=== PATIENT | female | born 1950 | race Caucasian/White ===

== ENCOUNTER 2017-03-15 11:43 | Emergency (ER) | payer MEDICARE, MEDICAID ==
[2017-03-15 12:00] VITALS: BP 145/89
--- NOTE | 2017-03-15 12:21 | UC ---
Skin Complaint HPI - HPI Summary HPI Summary: Patient presents to with CC of chemical burn/contact dermatitis to the diffusely through the right dorsum of the hand, slightly over the left dorsum of the hand and the left side of the cheek. She works with chemicals at work and currently cannot wear gloves there at [employer] because they are only supplying latex gloves to which she is allergic. She has had this issue before and has had steroids for relief. Unknown what type of chemical was dispersed over the hands. Hx of throat CA and stroke. Currently in remission. - History of Current Complaint Chief Complaint: UCSkin Time Seen by Provider: 03/15/17 11:58 Stated Complaint: SKIN COMPLAINT (CHEMICAL?) Hx Obtained From: Patient ?: No Onset/Duration: Gradual Onset Skin Exposure Onset/Duration: Days Ago Timing: Constant Onset Severity: Moderate Current Severity: Moderate Pain Intensity: 5 Pain Scale Used: 0-10 Numeric Location: Discrete - hands Character: Redness, Raised, Painful Aggravating: Wet Conditions Alleviating: Cold Compresses Associated Signs & Symptoms: Positive: Rash Related History: Possible Reaction to: Environmental Exposure - Allergy/Home Medications Allergies/Adverse Reactions: Allergies Allergy/AdvReac Type Severity Reaction Status Date / Time Morphine Allergy Mild nausea Verified 03/15/17 11:50 vomiting Codeine AdvReac Mild nausea Verified 03/15/17 11:50 vomiting Home Medications: Home Medications Aspirin [Eq Aspirin] 325 mg PO DAILY 03/15/17 [History Confirmed 03/15/17] Levetiracetam [Keppra 500] 500 mg PO BID 03/15/17 [History Confirmed 03/15/17] Levothyroxine TAB* [Synthroid TAB*] 50 mcg PO DAILY 03/15/17 [History Confirmed 03/15/17] Simvastatin TAB(NF) [Zocor(NF)] 10 mg PO DAILY 03/15/17 [History Confirmed 03/15] Review of Systems Constitutional: Negative Skin: Rash Eyes: Negative ENT: Negative Respiratory: Negative Genitourinary: Negative Motor: Negative Neurovascular: Negative Neurological: Negative Psychological: Negative All Other Systems Reviewed And Are Negative: Yes PMH/Surg Hx/FS Hx/Imm Hx Previously Healthy: Yes - Surgical History Surgical History: Yes Surgery Procedure, Year, and Place: esophogeal dilitation - Family History Known Family History: Positive: Unknown - Social History Occupation: Employed Full-time Lives: With Family Alcohol Use: None Substance Use Type: None Smoking Status (MU): Former Smoker Type: Cigarettes Have You Smoked in the Last Year: No When Did the Patient Quit Smoking/Using Tobacco: 2005 Physical Exam Triage Information Reviewed: Yes Appearance: Well-Appearing, No Pain Distress, Well-Nourished Vital Signs: Initial Vital Signs Temp 97.8 F 03/15/17 11:53 Pulse 65 03/15/17 11:53 Resp 16 03/15/17 11:53 BP 145/89 03/15/17 11:53 Pulse Ox 100 03/15/17 11:53 Eye Exam: Normal Eyes: Positive: Conjunctiva Clear Neck exam: Normal Neck: Positive: Supple, No Lymphadenopathy Respiratory Exam: Normal Respiratory: Positive: Chest non-tender, Lungs clear Cardiovascular Exam: Normal Cardiovascular: Positive: RRR Musculoskeletal Exam: Normal Musculoskeletal: Positive: Strength Intact Psychological: Positive: Normal Response To Family, Age Appropriate Behavior Skin: Positive: Other - diffuse ezcematic dry fissures/patches with area of bleeding over the dorsum of the right hand, slightly over the left hand and left side of cheek Course/Dx - Course Course Of Treatment: diffuse ezcematic dry patches with fissues with area of bleeding over the dorsum of the right hand, slightly over the left hand and left side of cheek. likely d/t chemical reaction from her work. Contact dermatitis. Prescription for 5 days prednisone, triamcinalone cream 5% and encouraged to wear non-latex gloves at work. note given for work. - Differential Diagnoses - Skin Complaint Differential Diagnoses: Contact Dermatitis, Drug Rash, Local Allergic Reaction, Poison [place], Poison [place] - Diagnoses Provider Diagnoses: Contact Dermatitis Discharge - Discharge Plan Condition: Stable Disposition: HOME Prescriptions: Triamcinolone 0.5% CREAM(NF) [Triamcinolone 0.5% CREAM*] 1 applic TOPICAL QID # 1 tube predniSONE TAB* [Deltasone TAB*] 50 mg PO DAILY #5 tab MDD 1 Patient Education Materials: Chemical Skin Burn (ED), Contact Dermatitis (ED) Forms: *Gen. Provider Communication Referrals: Jonny Boyce DO [Primary Care Provider] - Additional Instructions: APPLY TO AREA 4 TIMES DAILY USE GLOVES AT WORK AFTER APPLYING THE CREAM TAKE PREDNISONE 50MG ONCE IN THE MORNING FOR 5 DAYS IF SYMPTOMS BECOME WORSE, COME BACK TO IMMEDIATELY.
== END 2017-03-15 12:26 | disposition home or self-care (01) ==
LOC: UCCORT 11:43
DX: L25.9 Unspecified contact dermatitis, unspecified cause (principal); Z86.73 Personal history of transient ischemic attack (TIA), and cerebral infarction without residual deficits; Z88.5 Allergy status to narcotic agent; Z87.891 Personal history of nicotine dependence
CPT/HCPCS: 99202; G0463

== ENCOUNTER 2017-06-15 12:21 | Emergency (ER) | payer MEDICARE, MEDICAID ==
[2017-06-15 13:07] VITALS: BP 144/71
--- NOTE | 2017-06-15 13:38 | UC ---
Skin Complaint HPI - HPI Summary HPI Summary: Patient presents to the with CC of bilateral hand pruritis, swelling and eczematic fissures - worse in the right hand. 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 She wears gloves while at work. Pain and pruritis and swelling are worse at night and better with steroids. She was seen 3 months ago for same symptoms and treated by myself with triamcinalone and prednisone. She states this cleared up the issue for all 3 months, but recently her symptoms began to return. She is encouraged to change gloves frequently at work and wash hands frequently while drying well. This does not appear to by dyshidrotic eczema and there are no pustules or papules. - History of Current Complaint Chief Complaint: UCSkin Time Seen by Provider: 06/15/17 13:24 Stated Complaint: RASH Hx Obtained From: Patient Hx Last Menstrual Period: n/a ?: No Onset/Duration: Sudden Onset Timing: Constant Onset Severity: Moderate Current Severity: Moderate Pain Intensity: 5 Pain Scale Used: 0-10 Numeric Location: Hand (Right), Hand (Left) Character: Swelling, Pruritus Alleviating Factor(s): Antihistamines Associated Signs & Symptoms: Positive: Red Streaks, Joint Swelling Related History: Possible Reaction to: Environmental Exposure - Allergy/Home Medications Allergies/Adverse Reactions: Allergies Allergy/AdvReac Type Severity Reaction Status Date / Time Morphine Allergy Mild nausea Verified 06/15/17 13:07 vomiting Codeine AdvReac Mild nausea Verified 06/15/17 13:07 vomiting Review of Systems Constitutional: Negative Skin: Rash Eyes: Negative Respiratory: Negative Cardiovascular: Negative Gastrointestinal: Negative Genitourinary: Negative Motor: Negative Musculoskeletal: Negative Neurological: Negative Psychological: Negative Is Patient Immunocompromised?: Yes All Other Systems Reviewed And Are Negative: Yes PMH/Surg Hx/FS Hx/Imm Hx Previously Healthy: Yes - Surgical History Surgical History: Yes Surgery Procedure, Year, and Place: esophogeal dilitation - Family History Known Family History: Positive: Unknown - Social History Occupation: Employed Full-time Lives: With Family Alcohol Use: None Substance Use Type: None Smoking Status (MU): Former Smoker Type: Cigarettes Have You Smoked in the Last Year: No When Did the Patient Quit Smoking/Using Tobacco: 2005 - Immunization History Most Recent Influenza Vaccination: no Physical Exam Triage Information Reviewed: Yes Appearance: Well-Appearing, Well-Nourished Vital Signs: Initial Vital Signs Temp 98.9 F 06/15/17 13:03 Pulse 68 06/15/17 13:03 Resp 15 06/15/17 13:03 BP 144/71 06/15/17 13:03 Pulse Ox 99 06/15/17 13:03 Vital Signs Reviewed: Yes Eye Exam: Normal Eyes: Positive: Conjunctiva Clear Neck exam: Normal Neck: Positive: Supple, No Lymphadenopathy Respiratory Exam: Normal Respiratory: Positive: Chest non-tender Cardiovascular Exam: Normal Cardiovascular: Positive: RRR Musculoskeletal: Positive: Strength Intact Neurological Exam: Normal Neurological: Positive: Alert Psychological Exam: Normal Psychological: Positive: Normal Response To Family Skin: Positive: rashes Course/Dx - Course Course Of Treatment: She is encouraged to change gloves frequently at work and wash hands frequently while drying well. This does not appear to by dyshidrotic eczema and there are no pustules or papules. She is evaluated for contact dermatitis and shoulder pain. She was evaluated for something similar 3 months ago and plan at that time improved her symptoms. She is given the same medications today with the addition of hydroxyzine. She is given return precautions. - Differential Diagnoses - Skin Complaint Differential Diagnoses: Contact Dermatitis, Drug Rash, Other - Diagnoses Provider Diagnoses: Contact Dermatitis Discharge - Discharge Plan Condition: Stable Disposition: HOME Prescriptions: Triamcinolone 0.5% CREAM(NF) [Triamcinolone 0.5% CREAM*] 1 applic TOPICAL QID # 2 tube hydrOXYzine HCL TAB* [Atarax 25 MG TAB*] 25 mg PO TID PRN #20 tab PRN Reason: Itching predniSONE TAB* [Deltasone TAB*] 50 mg PO DAILY #5 tab MDD 1 Patient Education Materials: Contact Dermatitis (ED) Referrals: Jonny Boyce DO [Primary Care Provider] - Additional Instructions: Continue to wear gloves at work Apply the triamcinalone .5% cream (4 times daily) until symptoms resolve Prednisone once daily for 5 days - in the morning Hydroxyzine tabs up to three times daily only as needed for itching. Do not drive on this medication until you know how it affects you.
== END 2017-06-15 13:52 | disposition home or self-care (01) ==
LOC: UCCORT 12:21
DX: L25.9 Unspecified contact dermatitis, unspecified cause (principal); Z87.891 Personal history of nicotine dependence; Z88.5 Allergy status to narcotic agent
CPT/HCPCS: 99212; G0463

== ENCOUNTER 2017-08-21 07:15 | Emergency (ER) | payer MEDICARE, MEDICAID ==
[2017-08-21 07:25] VITALS: BP 181/81
--- NOTE | 2017-08-21 07:50 | UC ---
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 Denies any pain." she does admit to nasal congestion and PND. no ST. no pain. - History of Current Complaint Chief Complaint: UCEar Stated Complaint: EAR PLUGGED Time Seen by Provider: 08/21/17 07:21 Hx Last Menstrual Period: n/a - Allergies/Home Medications Allergies/Adverse Reactions: Allergies Allergy/AdvReac Type Severity Reaction Status Date / Time Morphine Allergy Mild nausea Verified 08/21/17 07:20 vomiting Codeine AdvReac Mild nausea Verified 08/21/17 07:20 vomiting PMH/Surg Hx/FS Hx/Imm Hx Previously Healthy: Yes Endocrine History: Thyroid Disease Neurological History: Seizures - Surgical History Surgical History: Yes Surgery Procedure, Year, and Place: esophogeal dilitation - Family History Known Family History: Positive: Hypertension - Social History Alcohol Use: None Substance Use Type: None Smoking Status (MU): Former Smoker Type: Cigarettes Have You Smoked in the Last Year: No When Did the Patient Quit Smoking/Using Tobacco: 2009 - Immunization History Most Recent Influenza Vaccination: no Review of Systems Constitutional: Negative Skin: Negative Eyes: Negative ENT: Nasal Discharge Respiratory: Negative Cardiovascular: Negative Gastrointestinal: Negative Genitourinary: Negative Motor: Negative Neurovascular: Negative Musculoskeletal: Negative Neurological: Negative Psychological: Negative Is Patient Immunocompromised?: No All Other Systems Reviewed And Are Negative: Yes Physical Exam Triage Information Reviewed: Yes Appearance: Well-Appearing, No Pain Distress, Well-Nourished - very pleasant Vital Signs: Initial Vital Signs Temp 98.1 F 08/21/17 07:22 Pulse 75 08/21/17 07:22 Resp 18 08/21/17 07:22 BP 181/81 08/21/17 07:22 Pulse Ox 99 08/21/17 07:22 Vital Signs Reviewed: Yes Eye Exam: Normal ENT: Positive: Pharyngeal erythema - +PND, Nasal congestion, Nasal drainage. Negative: TMs normal - Rt serous effusion, mild. Neck exam: Normal Neck: Positive: Supple, Nontender, No Lymphadenopathy Respiratory Exam: Normal Respiratory: Positive: Lungs clear, Normal breath sounds, No respiratory distress, No accessory muscle use Cardiovascular Exam: Normal Cardiovascular: Positive: RRR, No Murmur, Pulses Normal Musculoskeletal Exam: Normal Neurological Exam: Normal Psychological Exam: Normal Ear Complaint Course/Dx - Course Course Of Treatment: advised to f/u w/ pcp if sx do not resolve. - Differential Dx/Diagnosis Differential Diagnosis/HQI/PQRI: Cerumen Impaction, Foreign Body, Otitis Externa , Otitis Media Provider Diagnoses: Rt serous otitis, URI Discharge - Discharge Plan Condition: Stable Disposition: HOME Prescriptions: Fluticasone Propionate (Nasal) [Eql Fluticasone Propionat] 50 mcg NA DAILY 10 Days #1 spr Patient Education Materials: Serous Otitis Media (ED) Referrals: Jonny Boyce DO [Primary Care Provider] - Additional Instructions: Adding a humidifier to your room at night will be helpful as well as warm showers.
== END 2017-08-21 08:06 | disposition home or self-care (01) ==
LOC: UCCORT 07:15
DX: H65.91 Unspecified nonsuppurative otitis media, right ear (principal); J06.9 Acute upper respiratory infection, unspecified; E07.9 Disorder of thyroid, unspecified; R56.9 Unspecified convulsions; Z88.5 Allergy status to narcotic agent; Z87.891 Personal history of nicotine dependence
CPT/HCPCS: 99212; G0463

== ENCOUNTER 2017-09-21 07:09 | Emergency (ER) | payer MEDICAID, MEDICARE ==
[2017-09-21 07:23] VITALS: BP 149/83
--- NOTE | 2017-09-21 07:37 | UC ---
Throat Pain/Nasal Xavier HPI - HPI Summary HPI Summary: Congestion, sinus pressure and right ear pressure. The congestion has been about 2 days. There has been ear pressure for a few weeks. no fever. She has had a cough for a few days as well. She is on flonase for sinus disease as well. In the past prednisone has helped with pressure and congestion. - History of Current Complaint Chief Complaint: UCRespiratory Stated Complaint: SINUS COMPLAINT Time Seen by Provider: 09/21/17 07:25 Hx Obtained From: Patient Hx Last Menstrual Period: n/a ?: No Onset/Duration: Gradual Onset, Lasting Days Severity: Moderate Cough: Nonproductive Associated Signs & Symptoms: Positive: Sinus Discomfort, Nasal Discharge. Negative: Wheezing, Fever, Vomiting, Rash - Allergies/Home Medications Allergies/Adverse Reactions: Allergies Allergy/AdvReac Type Severity Reaction Status Date / Time Morphine Allergy Mild nausea Verified 09/21/17 07:23 vomiting Codeine AdvReac Mild nausea Verified 09/21/17 07:23 vomiting PMH/Surg Hx/FS Hx/Imm Hx Previously Healthy: No - Surgical History Surgical History: Yes Surgery Procedure, Year, and Place: esophogeal dilitation - Family History Known Family History: Positive: Unknown, Hypertension - Social History Alcohol Use: None Substance Use Type: None Smoking Status (MU): Former Smoker Type: Cigarettes Have You Smoked in the Last Year: No When Did the Patient Quit Smoking/Using Tobacco: 2009 - Immunization History Most Recent Influenza Vaccination: no Review of Systems ENT: Sinus Congestion, Sinus Pain/Tenderness Respiratory: Cough All Other Systems Reviewed And Are Negative: Yes Physical Exam Triage Information Reviewed: Yes Appearance: Well-Appearing, No Pain Distress, Well-Nourished Vital Signs: Initial Vital Signs Temp 98.7 F 09/21/17 07:17 Pulse 85 09/21/17 07:17 Resp 20 09/21/17 07:17 BP 149/83 09/21/17 07:17 Pulse Ox 99 09/21/17 07:17 Vital Signs Reviewed: Yes ENT: Positive: Pharynx normal, Nasal congestion, TMs normal, Uvula midline, Other - right tm slightly retracted.. Negative: Nasal drainage, TM bulging, TM dull, TM red, Tonsillar swelling, Tonsillar exudate, Trismus Neck exam: Normal Neck: Positive: Nontender, No Lymphadenopathy Respiratory: Positive: Lungs clear, Normal breath sounds, No respiratory distress, No accessory muscle use, Respiratory distress. Negative: Decreased breath sounds, Accessory muscle use, Crackles, Rhonchi, Stridor, Wheezing Cardiovascular: Positive: No Murmur, Pulses Normal, Brisk Capillary Refill, Tachycardia Abdomen Description: Positive: Nontender, No Organomegaly, Soft. Negative: Distended, Guarding Musculoskeletal: Positive: Strength Intact, ROM Intact, No Edema Neurological: Positive: Alert, Muscle Tone Normal. Negative: Fatigued Psychological: Positive: Age Appropriate Behavior Skin: Negative: rashes Throat Pain/Nasal Course/Dx - Course Assessment/Plan: URI without signs of bacterial infection. Nasal irrigation and OTC decongestants recommended. SHe can try medrol dose pack as it has helped in the past. She will wait until day 9 of sinus pressure to start amoxicillin. - Differential Dx/Diagnosis Provider Diagnoses: uri Discharge - Discharge Plan Condition: Good Disposition: HOME Prescriptions: Amoxicillin PO (*) [Amoxicillin 500 MG CAP*] 500 mg PO TID #30 cap Methylprednisolone [Medrol Dosepak 4 MG*] 4 mg PO .SEE VIVIANA INSTRUCTION #21 tab Patient Education Materials: Sinusitis (ED) Referrals: Jonny Boyce DO [Primary Care Provider] - If Needed
== END 2017-09-21 07:35 | disposition home or self-care (01) ==
LOC: UCCORT 07:09
DX: J06.9 Acute upper respiratory infection, unspecified (principal); Z88.5 Allergy status to narcotic agent; Z87.891 Personal history of nicotine dependence
CPT/HCPCS: 99212; G0463

== ENCOUNTER 2018-02-06 16:07 | Emergency (ER) | payer MEDICAID, MEDICARE ==
[2018-02-06 16:29] VITALS: BP 113/64
--- NOTE | 2018-02-06 16:44 | UC ---
Complaint Female HPI - HPI Summary HPI Summary: Urinary frequency and urgency began 2 days ago---felt like she had chills 2 days ago as well - History Of Current Complaint Hx Obtained From: Patient Hx Last Menstrual Period: n/a ?: No Onset/Duration: Sudden Onset, Lasting Days - 2, Still Present Timing: Constant Pain Intensity: 7 Pain Scale Used: 0-10 Numeric Character: Burning Aggravating Factor(s): Urination Alleviating Factor(s): Nothing Associated Signs And Symptoms: Positive: Negative <Jenae Bravo - Last Filed: 02/06/18 17:12> <Roya Hayes - Last Filed: 02/06/18 17:43> - History Of Current Complaint Chief Complaint: UCGU Stated Complaint: URINARY Time Seen by Provider: 02/06/18 16:37 - Allergies/Home Medications Allergies/Adverse Reactions: Allergies Allergy/AdvReac Type Severity Reaction Status Date / Time codeine Allergy Unknown Nausea And Verified 02/06/18 16:21 Vomiting morphine Allergy Unknown Nausea And Verified 02/06/18 16:21 Vomiting PMH/Surg Hx/FS Hx/Imm Hx Previously Healthy: No Endocrine History: Hypothyroidism, Dyslipidemia Neurological History: Seizures Cancer History: Other Other Cancer History: throat cancer - Surgical History Surgical History: Yes Surgery Procedure, Year, and Place: esophogeal dilitation - Family History Known Family History: Positive: Unknown, Hypertension - Social History Occupation: Employed Part-time Lives: With Family Alcohol Use: None Substance Use Type: None Smoking Status (MU): Former Smoker Type: Cigarettes Have You Smoked in the Last Year: No When Did the Patient Quit Smoking/Using Tobacco: 2009 - Immunization History Most Recent Influenza Vaccination: no <Jenae Bravo - Last Filed: 02/06/18 17:12> Review of Systems Constitutional: Chills Skin: Negative Eyes: Negative ENT: Nasal Discharge, Sinus Congestion Respiratory: Negative Cardiovascular: Negative Gastrointestinal: Negative Genitourinary: Dysuria, Frequency, Urgency Motor: Negative Neurovascular: Negative Musculoskeletal: Negative Neurological: Negative Psychological: Negative Is Patient Immunocompromised?: No All Other Systems Reviewed And Are Negative: Yes <Jenae Bravo - Last Filed: 02/06/18 17:12> Physical Exam Triage Information Reviewed: Yes Appearance: No Pain Distress, Ill-Appearing - chronic unwell, Thin Vital Signs: Initial Vital Signs Temp 100.3 F 02/06/18 16:24 Pulse 91 02/06/18 16:24 Resp 16 02/06/18 16:24 BP 113/64 02/06/18 16:24 Pulse Ox 97 02/06/18 16:24 Vital Signs Reviewed: Yes Eye Exam: Normal Eyes: Positive: Conjunctiva Clear ENT Exam: Normal ENT: Positive: Normal ENT inspection, Hearing grossly normal, Pharynx normal, Nasal congestion, Nasal drainage, TMs normal, Uvula midline. Negative: Trismus , Muffled voice, Hoarse voice, Sinus tenderness Neck exam: Normal Neck: Positive: Supple, Nontender Respiratory Exam: Normal Respiratory: Positive: Chest non-tender, Lungs clear, Normal breath sounds, No respiratory distress, No accessory muscle use Cardiovascular Exam: Normal Cardiovascular: Positive: RRR, No Murmur, Pulses Normal, Brisk Capillary Refill Abdominal Exam: Normal Abdomen Description: Positive: Nontender, No Organomegaly, Soft. Negative: CVA Tenderness (R), CVA Tenderness (L), Distended Bowel Sounds: Positive: Present Musculoskeletal Exam: Normal Musculoskeletal: Positive: Strength Intact, ROM Intact, No Edema Neurological Exam: Normal Neurological: Positive: Alert, Muscle Tone Normal Psychological Exam: Normal Skin Exam: Normal <Jenae Bravo - Last Filed: 02/06/18 17:12> Vital Signs: Initial Vital Signs Temp 100.3 F 02/06/18 16:24 Pulse 91 02/06/18 16:24 Resp 16 02/06/18 16:24 BP 113/64 02/06/18 16:24 Pulse Ox 97 02/06/18 16:24 <Roya Hayes - Last Filed: 02/06/18 17:43> Diagnostics - Laboratory Diagnostic Studies Completed/Ordered: + nitrates, leukoestrace, blood and protien <Jenae Bravo - Last Filed: 02/06/18 17:12> Complaint Female Dx - Course Course Of Treatment: rocephin times one now, bactrim, increase fluids, tylenol, ibuprofen follow in [address] Boyce, culture urine - Differential Dx/Diagnosis Provider Diagnoses: UTI <Jenae Bravo - Last Filed: 02/06/18 17:12> Discharge - Sign-Out/Discharge Documenting (check all that apply): Discharge/Admit/Transfer - Billing Disposition and Condition Condition: STABLE Disposition: HOME <Jenae Bravo - Last Filed: 02/06/18 17:12> - Billing Disposition and Condition Condition: STABLE Disposition: HOME <Roya Hayes - Last Filed: 02/06/18 17:43> - Discharge Plan Condition: Stable Disposition: HOME Prescriptions: Sulfamethox/Trimethoprim DS* [Bactrim DS 800/160 TAB*] 1 tab PO BID #14 tab Patient Education Materials: Urinary Tract Infection in Women (ED), Urinary Tract Infection in Older Adults (ED) Referrals: Jonny Boyce DO [Primary Care Provider] - 1 Week Attestation Statement User Type: Provider - I was available for consult. This patient was seen by the DOMINIC. The patient was not presented to, seen by, or examined by me. -Edgarj <Roya Hayes - Last Filed: 02/06/18 17:43>
[2018-02-06] MEDS ORDERED: cefTRIAXone VIAL(*) 1,000 MG VIAL IM ONE (17:01)
[2018-02-06] MEDS ORDERED: Lidocaine 1% MPF* 2 ML VIAL INJ ONE (17:03)
[2018-02-06] MEDS ORDERED: Lidocaine 1%* 5 ML VIAL ONE (17:06)
== END 2018-02-06 17:26 | disposition home or self-care (01) ==
LOC: UCCORT 16:07
DX: N39.0 Urinary tract infection, site not specified (principal); B96.20 Unspecified Escherichia coli [E. coli] as the cause of diseases classified elsewhere; Z88.5 Allergy status to narcotic agent; Z87.891 Personal history of nicotine dependence
CPT/HCPCS: 81003; 87077; 87086; 87186; 96372; J0696

== ENCOUNTER 2019-11-25 07:08 | Emergency (ER) | payer MEDICARE ==
--- OUTSIDE RECORDS SUMMARY | 2019-11-25 07:15 | XMS REPORT | Continuity of Care Document ---
:1950 External Reference #:[id number] Author Name Jonny Boyce DO Address [address] [place] [id number] Care Team Providers Name Role Phone Geoff Edmondson MD - Cardiovascular Care Team Information Hot Dip Plating Supervisor [phone] Disease True Thompson MD - Vascular Care Team Information Hot Dip Plating Supervisor 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/2012 History of cerebrovascular accident without Jonny Boyce DO Onset: 2011 residual deficits Carotid artery occlusion Jonny Boyce DO Onset: 01/19/2012 Hypothyroidism Jonny Boyce DO Onset: 01/19/2012 Benign essential hypertension Onset: 02/03/2015 Social History Type Date Description Comments Sex Unknown ETOH Use Denies alcohol use Recreational Drug Use Denies Drug Use Tobacco Use Start: Unknown End: Unknown Patient is a former smoker Smoking Status Reviewed: 12/07/18 Patient is a former smoker Allergies, Adverse Reactions, Alerts Active Allergies Reaction Severity Comments Date Codeine 01/19/2012 Morphine 01/19/2012 Medications Active Medications SIG Qnty Indications Ordering Date Provider Betamethasone apply 1 15gm L23.5 Jonny Boyce, 02/15/2018 Dipropionate application DO 0.05% topically to Cream affected area 1 times per day for skin condition with itching, arms Flonase 1 [place] Each 16units Jonny Boyce, 09/18/2014 50mcg/Act Nostril Twice A DO Suspension Day Levothyroxine Sodium take 1 tablet by 90tabs Jonny Boyce, 05/14/2014 mouth once daily DO 50mcg Tablets Aspirin Ec 1 by mouth every 30tabs Jonny Boyce, 325mg day DO Tablets DR Simvastatin take 1 tablet by 90tabs Jonny Boyce, 40mg mouth every day DO Tablets Levetiracetam take 1 tablet by 180tabs Jonny Boyce, 500mg mouth twice daily DO Tablets History Medications Prednisone 2 by mouth 10tabs L23.5 Jonny Boyce, 11/05/2019 - 20mg Tablets with food once DO 11/10/2019 a day Azithromycin 2 by mouth x 6tabs Jonny Boyce, 10/31/2019 - 250mg 1, then 1 by DO 11/05/2019 Tablets mouth daily x 4 days Immunizations CPT Code Status Date Vaccine Reaction Lot # [id number] Given 07/14/2017 Influenza Vac, Quadrivalent, Split, 0.5mL Dosage, Im Use Q2037 Given 07/01/2016 Fluvirin Immunization [facility] Q2037 Given 08/07/2015 Fluvirin Immunization 53504 Given 06/26/2013 Afluria Or Fluvirin Flu Vac Intramuscular 03712 Given 06/12/2012 Afluria Or Fluvirin Flu Vac Intramuscular Vital Signs Date Vital Result Comment 10/31/2019 1:03pm Body Temperature 97.8 F Weight 100.00 lb Heart Rate 70 /min BP Systolic 96 mmHg BP Diastolic 62 mmHg Respiratory Rate 18 /min Height 63.5 inches 5'3.50" O2 % BldC Oximetry 97 % BMI (Body Mass Index) 17.4 kg/m2 06/14/2019 2:49pm Weight 104.00 lb Heart Rate 72 /min BP Systolic 98 mmHg BP Diastolic 54 mmHg Respiratory Rate 18 /min Height 63.5 inches 5'3.50" BMI (Body Mass Index) 18.1 kg/m2 Results Test Acquired Date Facility Test Result H/L Range Note CBC with Auto Diff-fcmg 06/19/2019 [facility] WBC 5.1 K/uL 4.1-11.0 RBC 4.88 M/uL 4.00-5.40 Hemoglobin 15.1 gm/dL 12.0-16.0 Hematocrit 45.7 % 36.0-47.0 MCV 93.7 fL 80.0-97.0 MCH 31.0 pg 27.0-32.0 MCHC 33.1 g/dL 32.0-36.0 RDW 14.1 % 11.5-14.5 PLT Count 155 K/ul 140-400 MPV 10.4 FL 7.1-10.7 Neutrophil 71.3 % 35.0-75.0 Lymphocyte 15.3 % Low 16.0-52.0 Monocyte 9.6 % 2.0-10.0 Eosinophil 2.9 % 0.0-5.0 Basophil 0.9 % 0.0-4.0 Abs Neutrophils 3.6 K/uL 2.1-8.0 Abs Lymphocytes 0.8 K/uL 0.8-5.5 Abs Monocytes 0.5 K/uL 0.1-1.0 Abs Eosinophils 0.1 K/uL 0.0-0.5 Abs Basophils 0.0 K/uL 0.0-0.3 Basic (BMP) 06/19/2019 [facility] Sodium 139 mmol/L 135-146 1 Potassium 4.0 mmol/L 3.5-5.2 Chloride# 95 mmol/L Low 97-110 2 Carbon Dioxide 36 mmol/L High 24-34 Glucose 92 mg/dL 70-105 BUN 5 mg/dL Low 6-26 Creatinine 0.7 mg/dL 0.5-1.4 Calcium 9.3 mg/dL 8.5-10.5 3 Female Egfr 91 >60 4 Male Egfr 99 >60 5 Anion Gap 8 mmol/L 5-15 6 Laboratory test finding 06/19/2019 [facility] TSH 4.82 uIU/mL 0.35-4.94 Lipid Treatment 06/19/2019 [facility] Cholesterol 163 mg/dL 50-199 Triglycerides 59 mg/dL 30-200 HDL 70 mg/dL 35-85 7 Chol/ HDL Ratio 2.3 ratio Low 3.7-5.6 VLDL 12 mg/dL 2-29 LDL (Calc) 81 mg/dL 20-99 8 Alt 9 U/L 3-42 Ast 18 U/L 8-42 Laboratory test 06/19/2019 [facility] Keppra 12 ug/mL (5-30) 9 finding Laboratory test 06/14/2019 [facility] C[facility]ard Cancelled - Not Applicable 10 finding Dupl <SEE NOTE> 1 Updated reference range on new analyzer 2 Updated reference range on new analyzer 3 Updated reference range 01-17-2019 4 Concerning GFR Guidelines for Americans: Normal function or mild renal disease, if clinically at risk: >/= 60 mL/min Moderately decreased: 30-59 Severely decreased: 15-29 Renal failure: <15 There is reduced accuracy above 60ml/min/1.73 m squared, but the numeric value may be clinically useful in the near 60 range 5 Concerning GFR Guidelines: Normal function or mild renal disease, if clinically at risk: >/= 60 mL/min Moderately decreased: 30-59 Severely decreased: 15-29 Renal failure: <15 There is reduced accuracy above 60ml/min/1.73 m squared, but the numeric value may be clinically useful in the near 60 range Glomerular Filtration Rate (GFR) is estimated based on the CKD-EPI equation, which assumes a steady state for creatinine as recommended by the National Kidney Disease Education Program in conjunction with the National Institutes of Health and the National Kidney Foundation. Clinical conditions in which it may be necessary to measure GFR by using clearance methods include extremes of age and body size, severe malnutrition or obesity, diseases of skeletal muscle, paraplegia or quadriplegia, vegetarian diet, rapidly changing kidney function, and calculation of the dose of potentially toxic drugs that are excreted by the kidneys. 6 Updated Reference Range 7 Per NCEP ATP III Guidelines: Results lower than 40 mg/dL are suggestive of increased risk for coronary artery disease. Results > or = to 60 mg/dL are considered a negative risk factor. 8 Per NCEP ATP III Guidelines: Normal Population <130 Patients with medical conditions: CHD/DM Optimal: <100 Borderline high: 130-159 High: 160-189 Very high: >189 9 Unless otherwise specified, testing performed by [facility] [address] [place] [id number] 10 Cancelled - Duplicate Order This order has been cancelled due to patient order duplication. Test Type: Composite algorithmic analysis of stool DNA-biomarkers with hemoglobin immunoassay. Quantitative values of individual biomarkers are not reportable and are not associated with individual biomarker result reference ranges. Precautions and Limitations: Cologuard is intended for colorectal cancer screening of adults of either sex, 50 years or older, who are at typical average -risk for colorectal cancer. A negative Cologuard test result does not guarantee the absence of colorectal cancer or advanced adenoma (pre-cancer). Patients with a negative Cologuard test result should be advised to continue participating in a colorec peng cancer screening program. Cologuard may produce a positive result, even though a colonoscopy may not find colorectal cancer or precancerous polyps. The performance of Cologuard has been established in a cross sectional study (i.e., single point in time). Performance has not been evaluated in adults who have been previously tested with Cologuard or in patients less than 50 years of age. Cologuard h as been approved for use by the U.S. FDA. Cologuard performance data in a 10, 000 patient pivotal study using colonoscopy as the reference method can be accessed at the following location: [email or web address]. Additional description of the Cologuard test process, warnings and precautions can be found at [email or web address]. Rx Only. Procedures Date Code Description Status 10/31/2019 79121 Measure Blood Oxygen Level Single Determination Completed Medical Devices Description No Information Available Encounters Type Date Location Provider Dx Diagnosis Office Visit 10/31/2019 1:00p [facility] Jonny Boyce DO R05 Cough R06.02 Shortness of breath Z68.1 Body mass index (BMI) 19.9 or less, adult Office Visit 06/14/2019 2:45p Jonny Bartholomew DO D69.6 Thrombocytopenia, unspecified 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 E78.2 Mixed hyperlipidemia R56.9 Unspecified convulsions I65.23 Occlusion and stenosis of bilateral carotid arteries Z86.73 Prsnl hx of TIA (TIA), and cereb infrc w/o resid deficits F41.0 Panic disorder [episodic paroxysmal anxiety] H91.8x1 Other specified hearing loss, RIGHT ear E03.9 Hypothyroidism, unspecified R13.10 Dysphagia, unspecified Z12.11 Encounter for screening for malignant neoplasm of colon Z68.1 Body mass index (BMI) 19.9 or less, adult Assessments Date Code Description Provider 10/31/2019 R05 Jonny Faustin DO 10/31/2019 R06.02 Shortness of breath Jonny Boyce DO 10/31/2019 Z68.1 Body mass index (BMI) 19.9 or less, adult Jonny Boyce DO 06/19/2019 E78.2 Mixed hyperlipidemia Boyce, Jonny, DO 06/19/2019 E78.2 Mixed hyperlipidemia Schedule, Laboratory 06/19/2019 R56.9 Unspecified convulsions Jonny Boyce DO 06/19/2019 R56.9 Unspecified convulsions Schedule, Laboratory 06/19/2019 E78.2 Mixed hyperlipidemia [facility] 06/14/2019 D69.6 Thrombocytopenia, unspecified Jonny Boyce, DO 06/14/2019 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 Jonny Boyce, DO 06/14/2019 E78.2 Mixed hyperlipidemia Jonny Boyce, DO 06/14/2019 R56.9 Unspecified convulsions Jonny Boyce, DO 06/14/2019 I65.23 Occlusion and stenosis of bilateral carotid AustenJonny arteries 06/14/2019 Z86.73 Personal history of transient ischemic attack Jonny Boyce DO (TIA), and cer 06/14/2019 F41.0 Panic disorder [episodic paroxysmal anxiety] AustenJonny DO 06/14/2019 H91.8x1 Other specified hearing loss, RIGHT ear BoyceJonnyDO 06/14/2019 E03.9 Hypothyroidism, unspecified Boyce Jonny, 06/14/2019 R13.10 Dysphagia, unspecified Jonny Boyce, 06/14/2019 Z12.11 Encounter for screening for malignant Jonny Boyce DO neoplasm of colon 06/14/2019 Z68.1 Body mass index (BMI) 19.9 or less, adult Jonny Boyce DO Plan of Treatment Future Appointment(s):11/19/2019 1:15 pm - Jonny Boyce DO at [facility]12/13/2019 10:15 am - Jonny Boyce DO at [facility]10/31/2019 - Jonny Boyce DOR05 CoughFollow up:Get x-ray done today or soon. See me if [id number] Shortness of kefhmxR04.1 Body mass index (BMI) 19.9 or less, adultAllNew Medication: Azithromycin 250 mg - 2 by mouth x 1, then 1 by mouth daily x 4 days Functional Status Description No Information Available Mental Status Description No Information Available Referrals Description No Information Available
--- OUTSIDE RECORDS SUMMARY | 2019-11-25 07:15 | XMS REPORT | Continuity of Care Document ---
:1950 External Reference #:[id number] Author Name Jonny Boyce DO Address [address] [place] [phone] Care Team Providers Name Role Phone Geoff Edmondson MD - Cardiovascular Care Team Information General Foreman Disease True Thompson MD - Vascular Care Team Information General Foreman [facility] - Neurology Care Team Information General Foreman [phone] Problems Active Problems Provider Date Malignant tumor [...] Medications SIG Qnty Indications Ordering Date Provider Prednisone 1 po bid 10tabs Jonny Boyce, 11/16/2019 20mg Tablets DO Albuterol Sulfate HFA 2 puffs every 4 8.500gm Jonny Boyce 11/16/2019 hours as needed DO 108(90Base) mcg/Act Aerosol Betamethasone apply 1 15gm L23.5 Jonny Boyce, 02/15/2018 Dipropionate application DO 0.05% topically to Cream affected area 1 times per day for skin condition with itching, arms Flonase 1 [place] Each 16units Jonny Boyce, 09/18/2014 50mcg/Act Nostril [...] Code Status Date Vaccine Reaction Lot # [id number] Given 07/14/2017 Influenza Vac, Quadrivalent, Split, 0.5mL Dosage, Im Use Q2037 Given 07/01/2016 Fluvirin Immunization [facility] Q2037 Given 08/07/2015 Fluvirin Immunization 51457 Given 06/26/2013 Afluria Or Fluvirin Flu Vac Intramuscular 83739 Given 06/12/2012 Afluria Or Fluvirin Flu Vac Intramuscular Vital Signs Date Vital Result Comment 11/19/2019 1:13pm Weight 96.00 lb R/Reg Heart Rate 79 /min BP Systolic 142 mmHg BP Diastolic 88 mmHg Respiratory Rate 18 /min Height 63.5 inches 5'3.50" O2 % BldC Oximetry 98 % BMI (Body Mass Index) 16.7 kg/m2 10/31/2019 1:03pm Body Temperature 97.8 F Weight 100.00 lb Heart Rate 70 /min BP Systolic 96 mmHg BP Diastolic 62 mmHg Respiratory Rate 18 /min Height 63.5 inches 5'3.50" O2 % BldC Oximetry 97 % BMI (Body Mass Index) 17.4 kg/m2 Results Test Acquired Date Facility Test Result H/L Range Note CBC with Auto Diff-fcmg 06/19/2019 [facility] WBC 5.1 K/uL 4.1-11.0 RBC 4.88 M/uL [...] 18 U/L 8-42 Laboratory test 06/19/2019 [facility] Mgra 12 ug/mL (5-30) 9 finding Laboratory test 06/14/2019 [facility] العلي[facility] Cancelled - Not Applicable 10 finding Dupl [...] Unless otherwise specified, testing performed by [facility] [place] [facility] [address] [place] [id number] 10 Cancelled - Duplicate Order This order [...] can be accessed at the following location: [email or web address]. Additional description of the Cologuard test process, warnings and precautions can be found at [email or web address]. Rx Only. Procedures Date Code Description Status 11/19/2019 93066 Measure Blood Oxygen Level Single Determination Completed 10/31/2019 33667 Measure Blood Oxygen Level Single Determination Completed Medical Devices Description No Information Available Encounters Type Date Location Provider Dx Diagnosis Office Visit 10/31/2019 1:00p [facility] Jonny Boyce DO R05 Cough R06.02 Shortness [...] less, adult Assessments Date Code Description Provider 11/19/2019 J44.1 Chronic obstructive pulmonary disease with Jonny Boyce DO (acute) exacerbation 11/19/2019 F17.210 Nicotine dependence, cigarettes, Jonny Boyce DO uncomplicated 11/19/2019 Z68.1 Body mass index (BMI) 19.9 or less, adult BoyceJonny, DO 10/31/2019 R05 Cough Jonny Boyce, DO 10/31/2019 R06.02 Shortness of breath Jonny Boyce, DO 10/31/2019 Z68.1 Body mass index (BMI) 19.9 or less, adult BoyceJonny delgado, DO 06/19/2019 E78.2 Mixed hyperlipidemia Jonny Boyce, DO 06/19/2019 E78.2 Mixed hyperlipidemia Schedule, Laboratory 06/19/2019 R56.9 Unspecified convulsions Jonny Boyce, DO 06/19/2019 R56.9 Unspecified convulsions Schedule, Laboratory 06/19/2019 E78.2 [facility] hyper[facility] 06/14/2019 D69.6 Thrombocytopenia, unspecified BoyceJonny, DO 06/14/2019 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 Jonny Boyce, DO 06/14/2019 E78.2 Mixed hyperlipidemia Jonny Boyce, DO 06/14/2019 R56.9 Unspecified convulsions Jonny Boyce, DO 06/14/2019 I65.23 Occlusion and stenosis of bilateral carotid Jonny Boyce , arteries 06/14/2019 Z86.73 Personal history of transient ischemic attack Boyce, JonnyDO (TIA), and cer 06/14/2019 F41.0 Panic disorder [episodic paroxysmal anxiety] Jonny Boyce , DO 06/14/2019 H91.8x1 Other specified hearing loss, RIGHT ear Jonny Boyce, DO 06/14/2019 E03.9 Hypothyroidism, unspecified BoyceJonny, DO 06/14/2019 R13.10 Dysphagia, unspecified BoyceJonny, DO 06/14/2019 Z12.11 Encounter for screening for malignant Jonny Boyce DO neoplasm of colon 06/14/2019 Z68.1 Body mass index (BMI) 19.9 or less, adult Boyce, Jonny, DO Plan of Treatment Future Appointment(s):12/13/2019 10:15 am - Jonny Boyce DO at [facility]11/19/2019 - Jonny Boyce DOJ44.1 Chronic obstructive pulmonary disease with (acute) exacerbationComments:We will do a referral to the placement manager and she likely needs a PFT. She will let us know if she is symptomatic. The patient was advised to continue taking prednisone 20 mg twice a day and use albuterol sulfate HFA inhaler.Follow up:The patient will recheck with us as scheduled.F17.210 Nicotine dependence, cigarettes, uncomplicatedComments:She states that she quit smoking cigarettes, and we will monitor that.Z68.1 Body mass index (BMI) 19.9 or less, adultAllReferral:Rajiv Casillas MD, Pulmonary DiagnosticsFollow up:The patient will recheck with us as scheduled. Functional Status Description No Information Available Mental Status Description No Information Available Referrals Refer to Dr Reason for Referral Status Appt Date Rajiv Casillas MD COPD- recent exacerbation- would like evaluation Created with PFT [address] [place] [address] [phone]
--- OUTSIDE RECORDS SUMMARY | 2019-11-25 07:16 | XMS REPORT | Continuity of Care Document ---
:1950 External Reference #:[id number] Author Name Jonny Boyce DO Address [address] [place] [id number] Care Team Providers Name Role Phone Geoff Edmondson MD - Cardiovascular Care Team Information Tab Builder [phone] Disease True Thompson MD - Vascular Care Team Information Tab Builder [phone] [facility] - Neurology Care Team Information Tab Builder [phone] Problems Active Problems Provider Date Malignant tumor [...] Medications SIG Qnty Indications Ordering Date Provider Azithromycin 2 by mouth x 1, 6tabs Jonny Boyce, 10/31/2019 250mg then 1 by mouth DO Tablets daily x 4 days Betamethasone apply 1 15gm L23.5 Jonny Boyce, 02/15/2018 Dipropionate application DO 0.05% topically to Cream affected area 1 times per day for skin condition with itching, arms Flonase 1 [place] Each 16units Jonny Boyce, 09/18/2014 50mcg/Act Nostril Twice A DO Suspension Day Levothyroxine Sodium take 1 tablet by 90tabs AustenJonny, 05/14/2014 mouth once daily DO 50mcg Tablets Aspirin Ec 1 by mouth every 30tabs AustenEvelynew, 325mg day DO Tablets DR Simvastatin take 1 tablet by 90tabs Jonny Boyce, 40mg mouth every day DO Tablets Levetiracetam take 1 tablet by 180tabs Jonny Boyce, 500mg mouth twice daily DO Tablets Immunizations CPT Code Status Date Vaccine Reaction Lot # [id number] Given 07/14/2017 Influenza Vac, Quadrivalent, Split, 0.5mL Dosage, Im Use Q2037 Given 07/01/2016 Fluvirin Immunization [facility] Q2037 Given 08/07/2015 Fluvirin Immunization 47047 Given 06/26/2013 Afluria Or Fluvirin Flu Vac Intramuscular 83092 Given 06/12/2012 Afluria Or Fluvirin Flu Vac [...] by the kidneys. 6 Updated Reference Range -2017 7 Per NCEP ATP III Guidelines: Results [...] Unless otherwise specified, testing performed by [facility] [place] [facility] [address] [place] [id number] 10 Cancelled - Duplicate Order This order [...] can be accessed at the following location: [email or web address]. Additional description of the Cologuard test process, warnings and precautions can be found at [email or web address]. Rx Only. Procedures Date Code Description Status 10/31/2019 37078 Measure Blood Oxygen Level Single Determination Completed Medical Devices Description No Information Available Encounters Type Date Location Provider Dx Diagnosis Office Visit 06/14/2019 [facility] Jonny Boyce DO D69.6 Thrombocytopenia, 2:45p unspecified 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 [...] Assessments Date Code Description Provider 10/31/2019 R05 Cough Jonny Boyce DO 10/31/2019 R06.02 Shortness of breath Jonny Boyce DO 10/31/2019 Z68.1 Body mass index (BMI) 19.9 or less, adult Jonny Boyce DO 06/19/2019 E78.2 Mixed hyperlipidemia Jonny Boyce DO 06/19/2019 E78.2 Mixed hyperlipidemia Schedule, Laboratory 06/19/2019 R56.9 Unspecified convulsions Jonny Boyce DO 06/19/2019 R56.9 Unspecified convulsions Schedule, Laboratory 06/19/2019 E78.2 Mixed hyperlipidemia [facility] 06/14/2019 D69.6 Thrombocytopenia, unspecified Jonny Boyce DO 06/14/2019 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 AustenJonnyDO 06/14/2019 E78.2 Mixed hyperlipidemia [place] JonnyDO 06/14/2019 R56.9 Unspecified convulsions BoyceJonnyDO 06/14/2019 I65.23 Occlusion and stenosis of bilateral carotid Jonny Boyce DO arteries 06/14/2019 Z86.73 Personal history of transient ischemic attack Jonny Boyce DO (TIA), and cer 06/14/2019 F41.0 Panic disorder [episodic paroxysmal anxiety] BoyceJonny DO 06/14/2019 H91.8x1 Other specified hearing loss, RIGHT ear Jonny Boyce DO 06/14/2019 E03.9 Hypothyroidism, unspecified [place] Jonny, DO 06/14/2019 R13.10 Dysphagia, unspecified [place] JonnyDO 06/14/2019 Z12.11 Encounter for screening for malignant Jonny Boyce DO neoplasm of colon 06/14/2019 Z68.1 Body mass index (BMI) 19.9 or less, adult Jonny Boyce DO Plan of Treatment Future Appointment(s):12/13/2019 10:15 am - [facility]ce DO at [facility]10/31/2019 - Jonny Boyce DOR05 CoughNew Xrays:Chest Xray, 2 Views, Scheduled: Follow up:Get x-ray done today or soon. See me if kiyxiyS20.02 Shortness of lqepwxJ84.1 Body mass index (BMI) 19.9 or less, adultAllNew Medication: Azithromycin 250 mg - 2 by mouth x 1, then 1 by mouth daily x 4 days Functional Status Description No Information Available Mental Status Description No Information Available Referrals Description No Information Available
[2019-11-25 07:28] VITALS: BP 175/97
--- NOTE | 2019-11-25 07:30 | ED ---
Respiratory - HPI Summary HPI Summary: 69 yo wf h/o throat ca s/p neck radiation and extensive scarring and COPD dx'd 1 year ago presents with worsening SOB since yesterday associated with URI sx of cough and yellow sputum. - History of Current Complaint Stated Complaint: DIFFICULTY BREATHING Time Seen by Provider: 11/25/19 07:18 Hx Obtained From: Patient Onset/Duration: Sudden Onset Initial Severity: Moderate Current Severity: Moderate Character: Wheezing, Cough (Productive) Sputum Amount: Small Aggravating Factor(s): Nothing Alleviating Factor(s): Nothing Associated Signs and Symptoms: Negative - Risk Factors Status Asthmaticus Risk Factors: Negative Pulmonary Embolism Risk Factors: Negative - Allergy/Home Medications Allergies/Adverse Reactions: Allergies Allergy/AdvReac Type Severity Reaction Status Date / Time codeine Allergy Unknown Nausea And Verified 11/25/19 07:16 Vomiting morphine Allergy Unknown Nausea And Verified 11/25/19 07:16 Vomiting Home Medications: Home Medications Aspirin [Eq Aspirin] 325 mg PO DAILY 03/15/17 [History Confirmed 11/25/19] Levothyroxine TAB* [Synthroid TAB*] 50 mcg PO DAILY 03/15/17 [History Confirmed 11/25/19] Simvastatin TAB(NF) [Zocor 10 MG (NF)] 40 mg PO DAILY 03/15/17 [History Confirmed 11/25/19] levETIRAcetam [Keppra 500] 500 mg PO BID 03/15/17 [History Confirmed 11/25/19] Albuterol 2.5MG/3ML (0.083%)* [Ventolin 2.5 MG/3 ML NEB.EM*] 2.5 mg INH Q6H PRN 11/25/19 [History Confirmed 11/25/19] Azithromycin TAB* [Zithromax TAB (Z-VIVIANA) 250 mg #6 tabs] 2 tab PO .TODAY, THEN 1 DAILY 5 Days #1 viviana 11/25/19 [Rx] predniSONE [Prednisone 20 MG TAB] 20 mg PO BID 5 Days #10 tablet 11/25/19 [Rx] PMH/Surg Hx/FS Hx/Imm Hx Previously Healthy: Yes Endocrine/Hematology History: Denies: Hx Diabetes Cardiovascular History: Denies: Hx Hypertension Respiratory History: Denies: Hx Asthma, Hx Chronic Obstructive Pulmonary Disease (COPD) - Cancer History Cancer Type, Location and Year: throat cancer 02/22 - Surgical History Surgery Procedure, Year, and Place: esophogeal dilitation Infectious Disease History: Reports: Hx Shingles Denies: Traveled Outside the [place] in Last 30 Days - Family History Known Family History: Positive: Unknown, Hypertension, Non-Contributory - Social History Alcohol Use: None Substance Use Type: Reports: None Smoking Status (MU): Former Smoker Type: Cigarettes Have You Smoked in the Last Year: No Review of Systems Constitutional: Negative Eyes: Negative ENT: Negative Cardiovascular: Negative Positive: Shortness Of Breath Gastrointestinal: Negative Genitourinary: Negative Musculoskeletal: Negative Skin: Negative Neurological/Mental Status: Negative Psychological: Normal All Other Systems Reviewed And Are Negative: Yes Physical Exam - Summary Physical Exam Summary: Vital Signs Reviewed: Yes Appearance: Positive: No Pain Distress Skin: Positive: Warm Head/Face: Positive: Normal Head/Face Inspection Eyes: Positive: Normal ENT: Positive: Normal ENT inspection Dental: Negative: Cervical Lymphadenopathy Neck: Positive: Supple Respiratory/Lung Sounds: audible faint expiratory wheeze, NEG crackles Cardiovascular: Positive: Normal, RRR, S1, S2 Abdomen Description: Positive: Nontender Musculoskeletal: Positive: Normal Neurological: Positive: Normal Psychiatric: Positive: Normal Triage Information Reviewed: Yes Disposition - Course Assessment/Plan: Clinical progression to bronchitis likely given pt's extensive h/o throat ca, radiation and dx of COPD now with cough with yellow sputum.Will tx wiht steroids and abx, pt has nebs at home and will f/u with pulm next appt - Diagnoses Provider Diagnoses: COPD exacerbation, Bronchitis Discharge ED - Sign-Out/Discharge Documenting (check all that apply): Patient Departure All imaging exams completed and their final reports reviewed: No Studies - Discharge Plan Condition: Stable Disposition: HOME Referrals: Jonny Boyce DO [Primary Care Provider] - - Billing Disposition and Condition Condition: STABLE Disposition: Home
[2019-11-25] MEDS ORDERED: methylPREDNISolone SOD 40 MG* 1 ML VIAL IM ONE (07:55)
[2019-11-25] MEDS ORDERED: methylPREDNISolone SOD 40 MG* 1 ML VIAL IM SCH (08:00)
== END 2019-11-25 08:20 | disposition home or self-care (01) ==
LOC: UCCORT 07:08
DX: J44.1 Chronic obstructive pulmonary disease with (acute) exacerbation (principal); Z88.5 Allergy status to narcotic agent; Z79.82 Long term (current) use of aspirin; Z85.89 Personal history of malignant neoplasm of other organs and systems; Z92.3 Personal history of irradiation; Z87.891 Personal history of nicotine dependence
CPT/HCPCS: 96372; 99212; G0463; J2920

== ENCOUNTER 2020-01-05 12:25 | Emergency (ER) | payer MEDICARE ==
--- OUTSIDE RECORDS SUMMARY | 2020-01-05 12:33 | XMS REPORT | Continuity of Care Document ---
:1950 External Reference #:[id number] Author Name Jonny Boyce DO (transmitted by agent of provider June GUARDADO) Address [address] [place] [id number] Care Team Providers Name Role Phone Geoff Edmondson MD - Cardiovascular Care Team Information Assistant Corporate Secretary Disease True Thompson MD - Vascular Care Team Information Assistant Corporate Secretary [facility] - Neurology Care Team Information Assistant Corporate Secretary [phone] Problems Active Problems Provider Date Malignant tumor [...] is a former smoker Smoking Status Reviewed: 12/13/19 Patient is a former smoker Allergies, Adverse Reactions, Alerts Active Allergies Reaction Severity Comments Date Codeine 01/19/2012 Morphine 01/19/2012 Medications Active Medications SIG Qnty Indications Ordering Date Provider Prednisone 1 po bid 10tabs Jonny Boyce, 12/13/2019 20mg Tablets DO Albuterol Sulfate HFA 2 puffs every 4 8.500gm Jonny Boyce, 11/16/2019 hours as needed DO 108(90Base) mcg/Act Aerosol Betamethasone apply 1 15gm L23.5 Jonny Boyce, 02/15/2018 Dipropionate application DO 0.05% topically to Cream affected area 1 times per day for skin condition with itching, arms Flonase 1 [place] Each 16units Jonny Boyce, 09/18/2014 50mcg/Act Nostril [...] twice daily DO Tablets History Medications Prednisone 1 po bid 10tabs Jonny Boyce, 11/16/2019 - 20mg Tablets DO 11/21/2019 Prednisone 2 by mouth 10tabs L23.5 Jonny Boyce, 11/05/2019 - 20mg Tablets with food once DO 11/10/2019 a day Azithromycin 2 by mouth x 6tabs Jonny Boyce, 10/31/2019 - 250mg 1, then 1 by DO 11/05/2019 Tablets mouth daily x 4 days Immunizations CPT Code Status Date Vaccine Reaction Lot # [id number] Given 07/14/2017 Influenza Vac, Quadrivalent, Split, 0.5mL Dosage, Im Use Q2037 Given 07/01/2016 Fluvirin Immunization [facility] Q2037 Given 08/07/2015 Fluvirin Immunization [id number] Given 06/26/2013 [place] Fluvirin Flu Vac Intramuscular 12253 Given 06/12/2012 [place]fluria [place] Fluvirin Flu Vac [...] 3-42 Ast 18 U/L 8-42 Laboratory test finding 06/19/2019 Luiza Her 12 ug/mL (5-30) 9 1 Updated reference range on new analyzer [...] Unless otherwise specified, testing performed by [facility] [address] [place] [id number] Procedures Date Code Description Status 11/19/2019 98750 Measure Blood Oxygen Level Single Determination Completed 10/31/2019 23065 Measure Blood Oxygen Level Single Determination Completed Medical Devices Description No Information Available Encounters Type Date Location Provider Dx Diagnosis Office Visit 12/13/2019 [facility] Jonny Boyce DO Z00.00 Encntr for general 10:15a adult medical exam w/o abnormal findings E78.2 Mixed hyperlipidemia I65.23 Occlusion and stenosis of bilateral carotid arteries Z86.73 Prsnl hx of TIA (TIA), and cereb infrc w/o resid deficits H91.8x1 Other specified hearing loss, RIGHT ear E03.9 Hypothyroidism, unspecified R13.10 Dysphagia, unspecified Z12.11 Encounter for screening for malignant neoplasm of colon F41.0 Panic disorder [episodic paroxysmal anxiety] D69.6 Thrombocytopenia, unspecified 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 Z13.31 Encounter for screening for depression R56.9 Unspecified convulsions F17.201 Nicotine dependence, unspecified, in remission J44.9 Chronic obstructive pulmonary disease, unspecified Z68.1 Body mass index (BMI) 19.9 or less, adult Office Visit 11/19/2019 1:15p [facility] Jonny Boyce DO J44.1 Chronic obstructive pulmonary disease w (acute) exacerbation F17.210 Nicotine dependence, cigarettes, uncomplicated Z68.1 Body mass index (BMI) 19.9 or less, adult Office Visit 10/31/2019 1:00p [facility] Jonny Boyce DO R05 Cough R06.02 Shortness of breath Z68.1 Body mass index (BMI) 19.9 or less, adult Assessments Date Code Description Provider 12/13/2019 Z00.00 Encounter for general adult medical Jonny Boyce DO examination without abnormal findings 12/13/2019 E78.2 Mixed hyperlipidemia Jonny Boyce DO 12/13/2019 I65.23 Occlusion and stenosis of bilateral carotid Jonny Boyce DO arteries 12/13/2019 Z86.73 Personal history of transient ischemic attack Jonny Boyce DO (TIA), and cer 12/13/2019 H91.8x1 Other specified hearing loss, RIGHT ear Jonny Boyce DO 12/13/2019 E03.9 Hypothyroidism, unspecified Jonny Boyce DO 12/13/2019 R13.10 Dysphagia, unspecified Jonny Boyce DO 12/13/2019 Z12.11 Encounter for screening for malignant Boyce, Jonny, DO neoplasm of colon 12/13/2019 F41.0 Panic disorder [episodic paroxysmal anxiety] Jonny Boyce DO 12/13/2019 D69.6 Thrombocytopenia, unspecified Jonny Boyce, DO 12/13/2019 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 Jonny Boyce, DO 12/13/2019 Z13.31 Encounter for screening for depression Jonny Boyce DO 12/13/2019 R56.9 Unspecified convulsions Jonny Boyce, DO 12/13/2019 F17.201 Nicotine dependence, unspecified, in Jonny Boyce DO remission 12/13/2019 J44.9 Chronic obstructive pulmonary disease, Jonny Boyce DO unspecified 12/13/2019 Z68.1 Body mass index (BMI) 19.9 or less, adult Jonny Boyce DO 11/19/2019 J44.1 Chronic obstructive pulmonary disease with Jonny Boyce DO (acute) exacerbation 11/19/2019 F17.210 Nicotine dependence, cigarettes, Jonny Boyce, DO uncomplicated 11/19/2019 Z68.1 Body mass index (BMI) 19.9 or less, adult Jonny Boyce, DO 10/31/2019 R05 Cough Jonny Boyce, DO 10/31/2019 R06.02 Shortness of breath Jonny Boyce, DO 10/31/2019 Z68.1 Body mass index (BMI) 19.9 or less, adult Jonny Boyce, DO 06/19/2019 E78.2 Mixed hyperlipidemia Jonny Boyce, 06/19/2019 E78.2 Mixed hyperlipidemia Schedule, Laboratory 06/19/2019 R56.9 Unspecified convulsions Jonny Boyce DO 06/19/2019 R56.9 Unspecified convulsions Schedule, Laboratory 06/19/2019 E78.2 [facility] Plan of Treatment Future Appointment(s):06/09/2020 7:55 am - Schedule, Laboratory at [facility]2019 8:45 am - BoyceJonnyDO at [facility]12/13/2019 - Jonny BoyceDOZ00.00 Encounter for general adult medical examination without abnormal pnciwtnnQ25.2 Mixed hyperlipidemiaNew Labs:CBC with Auto Diff-fcmg, Scheduled: 06/09/20Basic ( BMP), Scheduled: 06/09/20TSH, Scheduled: 06/09/20Lipid Treatment, Scheduled: Follow up:Get fasting lab work done in 6 months, then see me a few days later.I65.23 Occlusion and stenosis of bilateral carotid npzfcenjA92.73 Personal history of transient ischemic attack (TIA), and cerH91.8x1 Other specified hearing loss, RIGHT earE03.9 Hypothyroidism, godbmmhzpdaS96.10 Dysphagia, mbralvptyieF03.11 Encounter for screening for malignant neoplasm of colonComments:Last cologuard was cancelled. Will obtain in the future.F41.0 Panic disorder [episodic paroxysmal anxiety]D69.6 Thrombocytopenia, nblavcrdghsC67.3 Malignant neoplasm of laryngeal vrkbsdvkyQ38.31 Encounter for screening for ghjbgsbmezM68.9 Unspecified convulsionsNew Labs:Keppra, Scheduled : 06/09/20F17.201 Nicotine dependence, unspecified, in remissionComments:The patient has quit smoking. Congragulated her on this.J44.9 Chronic obstructive pulmonary disease, unspecifiedComments:Sent in a script for Prednisone for 5 days to take as directed. Continue with the current medication regimen.Z68.1 Body mass index (BMI) 19.9 or less, adultAllNew Medication:Prednisone 20 mg - 1 po bid Functional Status Description No Information Available Mental Status Description No Information Available Referrals Refer to Reason for Referral Status Appt Date Rajiv Casillas MD COPD- recent exacerbation would like evaluation Scheduled with PFT called office spoke with Lucille, faxed 11/19, office will schedule pt and notify them and us of appt. BG 11/19 [address] [place] [address] [phone]
--- NOTE | 2020-01-05 12:35 | UC ---
Respiratory Complaint HPI - HPI Summary HPI Summary: Patient is a 69yo female with PMHx significant for throat CA s/p neck radiation and COPD diagnosed 1 yr ago presenting with increasing sob for the last 3 days. Patient denies persistent cough, but notes mild coughing with minimal sputum production today. Notes intermittent wheezing, worse last night. Denies URI symptoms. Denies chest pain and difficulty breathing. Denies fever and chills. Denies n/v. Denies decreased appetite. Denies ill contacts and concern for covid19. Has been using nebulizer at home with temporary relief. Patient states she was here last month and had steroid injection "which really helped." States she was also given an antibiotic and steroids for home that completely resolved her symptoms. - History of Current Complaint Stated Complaint: SOB Time Seen by Provider: 01/05/20 12:28 Hx Obtained From: Patient Hx Last Menstrual Period: n/a - Allergies/Home Medications Allergies/Adverse Reactions: Allergies Allergy/AdvReac Type Severity Reaction Status Date / Time codeine Allergy Unknown Nausea And Verified 11/25/19 07:16 Vomiting morphine Allergy Unknown Nausea And Verified 11/25/19 07:16 Vomiting Home Medications: Home Medications Aspirin [Eq Aspirin] 325 mg PO DAILY 03/15/17 [History Confirmed 01/05/20] Levothyroxine TAB* [Synthroid TAB*] 50 mcg PO DAILY 03/15/17 [History Confirmed 01/05/20] Simvastatin TAB(NF) [Zocor 10 MG (NF)] 40 mg PO BEDTIME 03/15/17 [History Confirmed 01/05/20] levETIRAcetam [Keppra 500] 500 mg PO BID 03/15/17 [History Confirmed 01/05/20] Albuterol 2.5MG/3ML (0.083%)* [Ventolin 2.5 MG/3 ML NEB.EM*] 2.5 mg INH Q6H PRN 11/25/19 [History Confirmed 01/05/20] Azithromyxin VIVIANA (NF) [Z-Viviana (Zithromax) 250 mg tabs #6] 2 tab PO .TODAY, THEN 1 DAILY #6 tab 01/05/20 [Rx] predniSONE [Prednisone 20 MG TAB] 40 mg PO DAILY 5 Days #10 tablet 01/05/20 [Rx] PMH/Surg Hx/FS Hx/Imm Hx Endocrine History: Hypothyroidism, Dyslipidemia Respiratory History: COPD Cancer History: Other - esophageal CA - Surgical History Surgical History: Yes Surgery Procedure, Year, and Place: esophogeal dilitation - Family History Known Family History: Positive: Unknown, Hypertension, Non-Contributory - Social History Alcohol Use: None Substance Use Type: None Smoking Status (MU): Former Smoker Type: Cigarettes Have You Smoked in the Last Year: No When Did the Patient Quit Smoking/Using Tobacco: 2009 - Immunization History Most Recent Influenza Vaccination: no Review of Systems All Other Systems Reviewed And Are Negative: Yes Constitutional: Positive: Negative. Negative: Fever, Chills ENT: Positive: Negative Respiratory: Positive: Shortness Of Breath, Cough Cardiovascular: Positive: Negative. Negative: Chest Pain Gastrointestinal: Positive: Negative. Negative: Vomiting, Nausea Musculoskeletal: Positive: Negative. Negative: Myalgia Neurological/Mental Status: Positive: Negative Physical Exam - Summary Physical Exam Summary: Vital Signs Reviewed: Yes A+Ox3, no distress, thin Eyes: Conjunctiva Clear ENT: Hearing grossly normal Neck: Positive: Supple Respiratory: Positive: No respiratory distress, No accessory muscle use, + diffuse faint expiratory wheezing, no crackles or rhonchi Cardiovascular: RRR nl s1, s2 no m/r Musculoskeletal Exam: WU x 4 without difficulty, no edema Neurological: Positive: Alert Psychological: Positive: age appropriate behavior Skin: Positive: no rash, no ecchymosis Vital Signs: Vital Signs (72 hours) 01/05/20 12:31 Temperature 97.8 F Pulse Rate 85 Respiratory 18 Rate Blood Pressure 135/95 (mmHg) O2 Sat by Pulse 95 Oximetry Respiratory Course/Dx - Course Course Of Treatment: Patient vehemently declined covid-19 testing. I treated the patient with steroid and antibiotics based on h/o copd and current symptoms and instructed to go to ED with any new or worsening symptoms. Instructed to attend pulmonology appt on 01/15/20. I also informed the patient of elevated blood pressure readings and instructed to follow up with pcp within the next month for recheck of bp. Patient voiced understanding and agreed with treatment plan. - Differential Dx/Diagnosis Differential Diagnosis/HQI/PQRI: Bronchitis, Exacerbation Of COPD, Lower Resp Infection Provider Diagnosis: COPD with acute exacerbation, Bronchitis Discharge ED - Sign-Out/Discharge Documenting (check all that apply): Patient Departure All imaging exams completed and their final reports reviewed: No Studies - Discharge Plan Condition: Stable Disposition: HOME Prescriptions: Azithromyxin VIVIANA (NF) [Z-Viviana (Zithromax) 250 mg tabs #6] 2 tab PO .TODAY, THEN 1 DAILY #6 tab predniSONE [Prednisone 20 MG TAB] 40 mg PO DAILY 5 Days #10 tablet Patient Education Materials: COPD (Chronic Obstructive Pulmonary Disease) (ED) , Hypertension (ED) Referrals: Jonny Boyce DO [Primary Care Provider] - 2 Weeks Additional Instructions: Take antiobiotics and prednisone as prescribed. Continue to use your inhaler or nebulizer as needed for shortness of breath. Go to the emergency room if you experience any new or worsening symptoms, including fever and increasing shortness of breath and difficulty breathing. You have also had elevated blood pressure readings at your last two visits. It is recommended that you follow up with your primary care provider within the next 4 weeks for recheck of blood pressure. - Billing Disposition and Condition Condition: STABLE Disposition: Home
[2020-01-05 12:54] VITALS: BP 135/95
[2020-01-05] MEDS ORDERED: methylPREDNISolone SOD 40 MG* 1 ML VIAL IM ONE (12:54)
[2020-01-05] MEDS ORDERED: Albuterol HFA INHALER* 8 gm MDI INH ONE (12:56)
== END 2020-01-05 13:17 | disposition home or self-care (01) ==
LOC: UCCORT 12:25
DX: J44.1 Chronic obstructive pulmonary disease with (acute) exacerbation (principal); E03.9 Hypothyroidism, unspecified; E78.5 Hyperlipidemia, unspecified; Z79.82 Long term (current) use of aspirin; Z79.890 Hormone replacement therapy; Z79.899 Other long term (current) drug therapy; Z88.5 Allergy status to narcotic agent; Z87.891 Personal history of nicotine dependence
CPT/HCPCS: 96372; 99213; A9270-GY; G0463; J2920